=== PATIENT | female | born 1975 | race Caucasian/White ===

== ENCOUNTER 2018-08-13 11:42 | Inpatient (IN) | payer MEDICARE, MEDICAID ==
[2018-08-13 11:42] VITALS: BMI 26.6
[2018-08-13 13:36] LABS: SQUAMOUS EPITHIAL 13 /hpf (0-5); URINE BILIRUBIN NEGATIVE (NEGATIVE); URINE BLOOD 1+ (NEGATIVE); URINE CLARITY Hazy (Clear); URINE COLOR Yellow (YELLOW); URINE GLUCOSE (UA) NORMAL (Normal); URINE LEUKOCYTE ESTERASE TRACE Leu/uL (Negative); URINE PROTEIN NEGATIVE (NEGATIVE); URINE UROBILINOGEN NORMAL mg/dL (0.2-1.0)
[2018-08-13 13:39] LABS: BASO % 0.5 % (0.0-2.0); EOS # 0.1 K/uL (0.0-0.7); EOS % 1.5 % (0.0-4.0); HCG,QUALITATIVE URINE NEGATIVE (NEGATIVE); LYMPH % 36.3 % (20.0-40.0); MEAN CELL VOLUME 85.2 fL (81.0-99.0); MEAN PLATELET VOLUME 7.5 fL (7.2-11.7); MONO # 0.5 K/uL (0.0-0.8); MONO % 5.7 % (0.0-10.0); NEUT # 4.6 K/uL (1.8-7.0); RBC 4.14 Mil/uL (3.80-5.20); RED CELL DISTRIBUTION WIDTH 13.6 % (11.5-14.5); WHITE BLOOD COUNT 8.2 K/uL (4.8-10.8)
[2018-08-13 13:51] LABS: ALB/GLOB RATIO 1.3 (1.0-2.1); ALBUMIN 4.5 g/dL (3.5-5.0); ALT/SGPT 31 U/L (9-52); AST/SGOT 30 U/L (14-36); BLOOD UREA NITROGEN 6 mg/dL (7-17); CALCIUM 9.9 mg/dl (8.6-10.4); GFR NON-AFRICAN AMERICAN > 60
[2018-08-13 14:00] LABS: BARBITURATES, UR NEGATIVE (NEGATIVE); BENZODIAZEPINES, UR NEGATIVE (NEGATIVE); OPIATES, UR NEGATIVE (NEGATIVE); PHENCYCLIDINE, UR NEGATIVE (NEGATIVE)
--- NOTE | 2018-08-13 14:23 | C.PDOC ---
History Of Present Illness 43-year-old female, presents to the emergency department with complaints of SI. Patient denies any drug use. No HI Time Seen by Provider: 08/13/18 12:20 Chief Complaint (Nursing): Psychiatric Evaluation History Per: Patient History/Exam Limitations: no limitations Past Medical History Reviewed: Historical Data, Nursing Documentation, Vital Signs Vital Signs: Last Vital Signs Temp 97.4 F L 08/13/18 14:32 Pulse 68 08/13/18 14:32 Resp 18 08/13/18 14:32 BP 125/86 08/13/18 14:32 Pulse Ox 100 08/13/18 14:32 - Medical History PMH: Anxiety, Asthma, Bipolar Disorder, Depression, Hypercholesterolemia Surgical History: Cholecystectomy - [facility] Procedures INDIVID PSYCHOTHERAP NEC (06/23/13) OTHER GROUP THERAPY (06/23/13) Family History: States: No Known Family Hx - Social History Hx Tobacco Use: No Hx Alcohol Use: Yes Hx Substance Use: No - Immunization History Hx Tetanus Toxoid Vaccination: No Hx Influenza Vaccination: No Hx Pneumococcal Vaccination: No Review Of Systems Constitutional: Negative for: Fever Cardiovascular: Negative for: Chest Pain Respiratory: Negative for: Shortness of Breath Neurological: Negative for: Weakness, Numbness Physical Exam - Physical Exam Appears: Non-toxic, No Acute Distress Skin: Warm, Dry, No Rash Head: Atraumatic, Normacephalic Eye(s): bilateral: Normal Inspection Nose: Normal Oral Mucosa: Moist Lips: Normal Appearing Neck: Normal ROM Cardiovascular: Rhythm Regular, No Murmur Respiratory: Normal Breath Sounds, No Accessory Muscle Use Gastrointestinal/Abdominal: Soft, No Tenderness Back: Normal Inspection Extremity: Normal ROM, No Deformity Neurological/Psych: Oriented x3, Normal Speech ED Course And Treatment - Laboratory Results Result Diagrams: 08/13/18 13:15 08/13/18 13:15 O2 Sat by Pulse Oximetry: 99 Pulse Ox Interpretation: Normal (RA) Medical Decision Making Medical Decision Making: Plan: * Bloodwork * UA * 1:1 observation * Reassess and Disposition Disposition Discussed With : Yoandy Weaver Counseled Patient/Family Regarding: Studies Performed, Diagnosis - Disposition Disposition: HOSPITALIZED Disposition Time: 14:39 Condition: FAIR Forms: [employer] (Polish) - Clinical Impression Clinical Impression: Manic bipolar I disorder - Scribe Statement The provider has reviewed the documentation as recorded by the Scribe (Yunier Nelson) Provider Attestation: All medical record entries made by the Scribe were at my direction and personally dictated by me. I have reviewed the chart and agree that the record accurately reflects my personal performance of the history, physical exam, medical decision making, and the department course for this patient. I have also personally directed, reviewed, and agree with the discharge instructions and disposition.
[2018-08-13 14:40] VITALS: O2SAT 99
--- NOTE | 2018-08-13 16:40 | PCM.BM ---
<Sudheer,Rosie Walker - Last Filed: 08/13/18 16:39> Treatment Plan Problems - Problems identified on initial assessmt depression Date Initiated: 08/13/18 Time Initiated: 16:39 Assessment reference: NA Status: Active Treatment assets and liabiliti Patient Assests: cooperative, educated, insightful, motivated, ADL independent, physically healthy, good support system, negotiates basic needs, cognitively intact Patient Liabilities: financial problems - Milieu Protocol Maintain good personal hygiene: daily Encourage regular showers, daily Remind patient to perform daily oral care, daily Assist patient to perform ADL's Conduct patient checks and document Observation sheet: Q15 minutes Maintain personal safety: every shift Educate patient to report safety concerns to staff, every shift Monitor environment for contraband/sharps Medication safety: Monitor for expected outcome, potential side effects: every shift, Assess barriers to learning: every shift, Assess readiness for medication education: every shift <Florinda Murguia - Last Filed: 08/15/18 11:59> Family Contact Family involvement: Family/SO is involved Family contact: Patient agrees to contact Family contact name: Francesca Rdz-sister Family contacted how many times per week?: 1 - Outside Agency PACT Care involvment: Following patient during stay, Information-sharing Agency contact name: PACT Agency contact number: - Goals for Treatment Patient goals for treatment: "I want to go home." Discharge/Continuing Care - Education Needs Education Needs: Patient Medication, Patient Coping Skills - Discharge Discharge Criteria: Tolerates medication w/o severe side effects, Reduction of target symptoms Discharge to:: Home, With Family - Treatment Team Participation Discussed with Family/SO: No Was Patient/Family/SO present at Treatment Team Meeting: Yes <Yoandy Weaver - Last Filed: 08/20/18 11:36> - Diagnosis (1) Schizoaffective disorder Status: Acute Interventions: 08/20/18 11:36 * Assess/adjust medications daily and /or as needed * See patient on an individual basis 7x/week to assess status of hallucinations * Discuss risks, benefits, side effects and alternatives of medications *
[2018-08-14] MEDS ORDERED: Lithium Carbonate 150 MG CAP PO SCH (10:00)
--- NOTE | 2018-08-14 10:22 | PCM.PSYCH ---
Initial Psychiatric Evaluation - Initial Psychiatric Evaluation Type of Admission: Voluntary Legal Status: Capacity Chief Complaint (in patient's own words): I was feeling depressed and suicidal.' History of Present Illness and Precipitating Events: This is a 43 years old female, , who lives with her , came to the hospital with depressed and irritable mood and suicidal ideation. Patient history of multiple inpatient psychiatric hospitalizations. She was recently discharged from [facility] involuntary unit, last month. Patient is currently seeing a doctor at [facility] and got a shot of Risperdal, almost 3 days ago. Patient appeared very disorganized and internally preoccupied throughout the interview. She appeared to be manic, paranoid, bizarre and delusional. She remained very talkative, loud, aggressive and irritable throughout the interview. She reports of racing thoughts, irritability and agitation. She also reports auditory hallucinations noncommand type. She reports that she is constantly hearing voices that never goes away. She also reports of seeing shadows and demons. She remained disheveled, bizarre and paranoid. She was a poor historian and at times she started yelling and cursing at the staff, saying they're not giving her her medications. PMH: Asthma, DM Current Medications: Active Medications Generic Name Dose Route Start Last Admin Trade Name Freq PRN Reason Stop Dose Admin Hydroxyzine HCl 25 mg 08/13/18 14:25 08/14/18 06:57 Atarax PO 25 mg Q6 PRN Administration Agitation Theresa Carbonate 150 mg 08/14/18 10:00 08/14/18 09:06 Theresa Carbonate 150mg PO 150 mg DAILY ALETA Administration Metformin HCl 850 mg 08/13/18 18:00 08/14/18 09:09 Glucophage PO 850 mg BID ALETA Administration Risperidone 2 mg 08/13/18 18:00 08/14/18 09:06 Risperdal Tab PO 2 mg BID ALETA Administration Rosuvastatin Calcium 10 mg 08/13/18 22:00 08/13/18 21:24 Crestor PO 10 mg HS ALETA Administration Zolpidem Tartrate 5 mg 08/13/18 22:00 08/13/18 21:24 Ambien PO 5 mg HS ALETA Administration Past Psychiatric History - Past Psychiatric History Previous Treatment History: Inpatient Pertinent Medical Hx (Current Medical&Sleep Prob, Allergies): Allergies Allergy/AdvReac Type Severity Reaction Status Date / Time divalproex sodium Allergy Verified 08/13/18 11:49 [From Depakote] haloperidol [From Haldol] Allergy Verified 08/13/18 11:49 Penicillins Allergy Verified 08/13/18 11:49 Atorvastatin [Lipitor] 20 mg PO DAILY 08/13/18 Theresa Carbonate [Theresa Carbonate 150MG] 150 mg PO DAILY 08/13/18 Risperidone [Risperdal] 2 mg PO BID 08/13/18 Zolpidem [Ambien] 5 mg PO QPM 08/13/18 clonazePAM [clonAZEPAM] 0.5 mg PO BID 08/13/18 metFORMIN [glucOPHAGE] 850 mg PO BID 08/13/18 Review of Systems - Review of Systems All systems: reviewed and no additional remarkable complaints except - Psychiatric Psychiatric: Anxiety, Auditory Hallucinations, Irritability, Mood Swings, Suicidal Ideation, Visual Hallucinations Mental Status Examination - Personal Presentation Personal Presentation: Looks stated age - Affect Affect: Broad - Motor Activity Motor Activity: Psychomotor Agitation - Reliability in Providing Information Reliability in Providing Information: Poor, due to alteration in thoughts, Poor , due to altered mood - Speech Speech: Disorganized - Mood Mood: Anxious - Formal Thought Process Formal Thought Process: Hallucinations, Delusions, Paranoia, Loosening of associations, Flight of ideas, Circumstantial - Hallucinations/Delusions Hallucinations: Visual, Auditory Delusions: Persecution - Obsessions/Compulsions Obsessions: No Compulsions: No - Cognitive Functions Orientation: Person, Place, Situation, Time Sensorium: Alert Attention/Concentration: Attentive Abstract Thinking: [place] Estimate of Intelligence: Below average Judgement: Imparied, as evidence by: Poor judgement, Imparied, as evidence by: Lack of insight into illness - Risk Risk: Suicidal, Diminished functioning - Strength & Assets Inventory Strength & Assets Inventory: Family support DSM 5 DX - DSM 5 DSM 5 Diagnosis: Schizoaffective disorder bipolar type - Recommended/Plan of Treatment Treatment Recommendations and Plan of Treatment: Schizoaffective disorder bipolar type DM Asthma CBT Psychoeducation Supportive therapy, individual therapy and group therapy Risperdal 2 mg by mouth twice a day [place] 300 mg by mouth 3 times a day Trazodone 50 mg by mouth daily at bedtime Hydroxyzine 25 mg by mouth every 6 hours when necessary Klonopin 1 mg by mouth twice a day Ativan 1 mg by mouth every 6 hours when necessary Continue metformin Continue asthma inhaler - Smoking Cessation Smoking Cessation Initiated: No
[2018-08-14] MEDS ORDERED: Albuterol HFA 90 mcg/actuation (8 g) INH PRN (15:27)
[2018-08-14] MEDS: Fluticasone-Salmeterol 250-50mcg Diskus INH SCH (20:03)
[2018-08-15] MEDS: Fluticasone-Salmeterol 250-50mcg Diskus INH SCH ×2 (08:02→20:10)
--- NOTE | 2018-08-15 12:55 | PCM.PYCHPN ---
Psychiatric Progress Note - Psychiatric Progress Note Patient seen today, length of contact: 15 min Patient Chief Complaint: I was feeling depressed.' Problems Identified/Issues Discussed: Patient seen and evaluated, chart reviewed and discussed with the nurse. She still reports irritability and agitation. Pt remained disorganized and internally preoccupied. She still appears manic, psychotic, delusional and continued to have racing thoughts and flight of ideas. Patient is compliant with medications and denies any side effects. Symptoms are improving but pt needs more time to stabilize. Support and psychoeducation given. Medication Change: Yes Medical Record Reviewed: Yes Mental Status Examination - Cognitive Function Orientation: Person, Place, Situation, Time Memory: Intact Attention: Poor Concentration: Poor Association: Loose Fund of Knowledge: Poor - Mood Mood: Anxious - Affect Affect: Broad - Speech Speech: Loud - Formal Thought Process Formal Thought Process: Hallucinations, Delusions, Paranoia, Loosening of associations, Flight of ideas, Circumstantial - Suicidal Ideation Suicidal Ideation: No - Homicidal Ideation Homicidal Ideation: No Goal/Treatment Plan - Goal/Treatment Plan Need for Continued Stay: Severe depression anxiety, Severe functional impairment Progress Toward Problem(s) and Goals/Treatment Plan: Schizoaffective disorder bipolar type DM Asthma CBT Psychoeducation Supportive therapy, individual therapy and group therapy Risperdal 2 mg by mouth twice a day [place] 600 mg by mouth 2 times a day Trazodone 50 mg by mouth daily at bedtime Hydroxyzine 25 mg by mouth every 6 hours when necessary Klonopin 1 mg by mouth twice a day Ativan 1 mg by mouth every 6 hours when necessary Continue metformin Continue asthma inhaler
[2018-08-16] MEDS: Fluticasone-Salmeterol 250-50mcg Diskus INH SCH ×2 (07:56→20:30)
[2018-08-17] MEDS ORDERED: Magnesium Hydroxide Susp 30 ml UD PO ONE (01:30)
[2018-08-17] MEDS: Fluticasone-Salmeterol 250-50mcg Diskus INH SCH ×2 (08:04→20:10)
--- NOTE | 2018-08-17 23:33 | PCM.PYCHPN ---
Psychiatric Progress Note - Psychiatric Progress Note Patient seen today, length of contact: 15 min Patient Chief Complaint: "I am ready to leave tomorrow" Problems Identified/Issues Discussed: The pt is seen, chart reviewed, case discussed with staff. The pt is compliant with medications and reports no side-effects. Symptoms are improving but needs much more time to stabilize. Still very sick Support and psychoeducation given. Medication Change: Yes Medical Record Reviewed: Yes Mental Status Examination - Cognitive Function Orientation: Person, Place, Situation, Time Memory: Impaired Attention: Poor Concentration: Poor Association: Loose Fund of Knowledge: Poor - Mood Mood: Anxious - Affect Affect: Constricted - Speech Speech: Loud - Formal Thought Process Formal Thought Process: Hallucinations, Delusions, Paranoia, Loosening of associations, Flight of ideas, Circumstantial - Suicidal Ideation Suicidal Ideation: No - Homicidal Ideation Homicidal Ideation: No Goal/Treatment Plan - Goal/Treatment Plan Need for Continued Stay: Discharge may exacerbated symptoms, Severe functional impairment Progress Toward Problem(s) and Goals/Treatment Plan: Continue medications Support and psychoeducation daily Attend groups and activities daily After care planning by GERA
[2018-08-18] MEDS: Fluticasone-Salmeterol 250-50mcg Diskus INH SCH ×2 (07:36→21:02)
[2018-08-19] MEDS: Fluticasone-Salmeterol 250-50mcg Diskus INH SCH ×2 (08:33→20:42)
--- NOTE | 2018-08-19 12:24 | PCM.PYCHPN ---
Psychiatric Progress Note - Psychiatric Progress Note Patient seen today, length of contact: 16 min Patient Chief Complaint: I was feeling irritable' Problems Identified/Issues Discussed: Patient seen and evaluated, chart reviewed and discussed with the nurse. Per st aff, pt appears little better, however, she remained disorganized and internally preoccupied. She still appears manic, psychotic, delusional and continued to have racing thoughts and flight of ideas. Patient is compliant with medications and denies any side effects. Symptoms are improving but pt needs more time to stabilize. Support and psychoeducation given. Medication Change: Yes Medical Record Reviewed: Yes Mental Status Examination - Cognitive Function Orientation: Person, Place, Situation, Time Memory: Intact Attention: Poor Concentration: Poor Association: Loose Fund of Knowledge: Poor - Mood Mood: Anxious - Affect Affect: Broad - Speech Speech: Loud - Formal Thought Process Formal Thought Process: Hallucinations, Delusions, Paranoia, Loosening of associations, Flight of ideas, Circumstantial - Suicidal Ideation Suicidal Ideation: No - Homicidal Ideation Homicidal Ideation: No Goal/Treatment Plan - Goal/Treatment Plan Need for Continued Stay: Severe depression anxiety, Severe functional impairment Progress Toward Problem(s) and Goals/Treatment Plan: Schizoaffective disorder bipolar type DM Asthma CBT Psychoeducation Supportive therapy, individual therapy and group therapy Risperdal 2 mg by mouth daily Risperdal 4 mg by mouth HS [place] 600 mg by mouth 2 times a day Trazodone 50 mg by mouth daily at bedtime Hydroxyzine 25 mg by mouth every 6 hours when necessary Klonopin 1 mg by mouth TID Ativan 1 mg by mouth every 6 hours when necessary Continue metformin Continue asthma inhaler
--- NOTE | 2018-08-19 12:25 | PCM.PYCHPN ---
Psychiatric Progress Note - Psychiatric Progress Note Patient seen today, length of contact: 16 min Patient Chief Complaint: I was feeling irritable' Problems Identified/Issues Discussed: Patient seen and evaluated, chart reviewed and discussed with the nurse. She reports some improvement in her voices but remained disorganized and internally preoccupied. She still appears manic, psychotic, delusional and continued to have racing thoughts and flight of ideas. Patient is compliant with medications and denies any side effects. Symptoms are improving but pt needs more time to stabilize. Support and psychoeducation given. Medication Change: Yes Medical Record Reviewed: Yes Mental Status Examination - Cognitive Function Orientation: Person, Place, Situation, Time Memory: Intact Attention: Poor Concentration: Poor Association: Loose Fund of Knowledge: Poor - Mood Mood: Anxious - Affect Affect: Broad - Speech Speech: Loud - Formal Thought Process Formal Thought Process: Hallucinations, Delusions, Paranoia, Loosening of associations, Flight of ideas, Circumstantial - Suicidal Ideation Suicidal Ideation: No - Homicidal Ideation Homicidal Ideation: No Goal/Treatment Plan - Goal/Treatment Plan Need for Continued Stay: Severe depression anxiety, Severe functional impairment Progress Toward Problem(s) and Goals/Treatment Plan: Schizoaffective disorder bipolar type DM Asthma CBT Psychoeducation Supportive therapy, individual therapy and group therapy Risperdal 2 mg by mouth daily Risperdal 4 mg by mouth HS [place] 600 mg by mouth 2 times a day Trazodone 50 mg by mouth daily at bedtime Hydroxyzine 25 mg by mouth every 6 hours when necessary Klonopin 1 mg by mouth TID Ativan 1 mg by mouth every 6 hours when necessary Continue metformin Continue asthma inhaler
[2018-08-20] MEDS: Fluticasone-Salmeterol 250-50mcg Diskus INH SCH ×2 (08:56→19:57)
--- NOTE | 2018-08-20 11:35 | PCM.PYCHPN ---
Psychiatric Progress Note - Psychiatric Progress Note Patient seen today, length of contact: 16 min Patient Chief Complaint: I was feeling irritable' Problems Identified/Issues Discussed: Patient seen and evaluated, chart reviewed and discussed with the nurse. She appears more organized and less internally preoccupied than before. However, she still appears hypomanic, psychotic, and delusional . She continued to have racing thoughts and flight of ideas. Patient is compliant with medications and denies any side effects. Symptoms are improving but pt needs more time to stabilize. Support and psychoeducation given. Medication Change: Yes Medical Record Reviewed: Yes Mental Status Examination - Cognitive Function Orientation: Person, Place, Situation, Time Memory: Intact Attention: WNL Concentration: WNL Association: Loose Fund of Knowledge: WNL - Mood Mood: Anxious - Affect Affect: Broad - Speech Speech: Loud - Formal Thought Process Formal Thought Process: Delusions, Loosening of associations - Suicidal Ideation Suicidal Ideation: No - Homicidal Ideation Homicidal Ideation: No Goal/Treatment Plan - Goal/Treatment Plan Need for Continued Stay: Severe depression anxiety, Severe functional impairment Progress Toward Problem(s) and Goals/Treatment Plan: Schizoaffective disorder bipolar type DM Asthma CBT Psychoeducation Supportive therapy, individual therapy and group therapy Risperdal 2 mg by mouth daily Risperdal 4 mg by mouth HS [place] 600 mg by mouth 2 times a day Trazodone 50 mg by mouth daily at bedtime Hydroxyzine 25 mg by mouth every 6 hours when necessary Klonopin 1 mg by mouth TID Ativan 1 mg by mouth every 6 hours when necessary Continue metformin Continue asthma inhaler Invega Sustenna 234 mg I/M
[2018-08-20] MEDS ORDERED: Patient's Own Injectable IM ONE (13:00)
[2018-08-21 06:54] VITALS: RESP 18; TEMP 98.1
[2018-08-21 08:54] VITALS: BP 117/77; PULSE 85
--- NOTE | 2018-08-21 10:02 | PCM.PYCHDC ---
Mental Status Examination - Mental Status Examination Orientation: Person, Place, Situation, Time Memory: Intact Mood: Neutral Affect: Constricted Speech: Soft Attention: WNL Concentration: WNL Association: WNL Fund of Knowledge: WNL Formal Thought Process: No Impairment Description of patient's judgement and insight: good, fair Psychotic Thoughts and Behaviors: denies any AVH Suicidal Ideation: No Current Homicidal Ideation?: No Discharge Summary - Discharge Note Reason for Hospitalization: This is a 43 years old female, , who lives with her , came to the hospital with depressed and irritable mood and suicidal ideation. Patient history of multiple inpatient psychiatric hospitalizations. She was recently discharged from [facility] involuntary unit, last month. Patient is currently seeing a doctor at [facility] and got a shot of Risperdal, almost 3 days ago. Patient appeared very disorganized and internally preoccupied throughout the interview. She appeared to be manic, paranoid, bizarre and delusional. She remained very talkative, loud, aggressive and irritable throughout the interview. She reports of racing thoughts, irritability and agitation. She also reports auditory hallucinations noncommand type. She reports that she is constantly hearing voices that never goes away. She also reports of seeing shadows and demons. She remained disheveled, bizarre and paranoid. She was a poor historian and at times she started yelling and cursing at the staff, saying they're not giving her her medications. Laboratory Data: Abnormal Lab Results 08/21/18 08:00 POC Glucose (mg/dL) 111 H Consultations:: List each consultation separately and include: 1. Reason for request. 2. Findings. 3. Follow-up Summary of Hospital Course include:: 1. Description of specific treatment plan utilized for patients during their course of treatmen. 2. Summarize the time- course for resolution of acute symptoms and/or regressed behaviors. 3. Describe issues identified and worked on during hospitalization. 4. Describe medication utilized. 5. Describe medical problems identified and treated. 6. Reassessment of suicide risk Summary of Hospital Course: This is a 43 years old female, , who lives with her , came to the hospital with depressed and irritable mood and suicidal ideation. Patient history of multiple inpatient psychiatric hospitalizations. She was recently discharged from [facility] involuntary unit, last month. Patient is currently seeing a doctor at [facility] and got a shot of Risperdal, almost 3 days ago. Patient appeared very disorganized and internally preoccupied throughout the interview. She appeared to be manic, paranoid, bizarre and delusional. She remained very talkative, loud, aggressive and irritable throughout the interview. She reports of racing thoughts, irritability and agitation. She also reports auditory hallucinations noncommand type. She reports that she is constantly hearing voices that never goes away. She also reports of seeing shadows and demons. She remained disheveled, bizarre and paranoid. She was a poor historian and at times she started yelling and cursing at the staff, saying they're not giving her her medications. PMH: Asthma, DM - Diagnosis (1) Schizoaffective disorder Current Visit: Yes Status: Acute - Final Diagnosis (DSM 5) Condition upon Discharge: FAIR DSM 5: Schizoaffective disorder bipolar type Disposition: HOME/ ROUTINE Follow-up Treatment Plan: Schizoaffective disorder bipolar type DM Asthma CBT Psychoeducation Supportive therapy, individual therapy and group therapy Risperdal 2 mg by mouth daily Risperdal 4 mg by mouth HS [place] 600 mg by mouth 2 times a day Trazodone 50 mg by mouth daily at bedtime Hydroxyzine 25 mg by mouth every 6 hours when necessary Klonopin 1 mg by mouth TID Ativan 1 mg by mouth every 6 hours when necessary Continue metformin Continue asthma inhaler [place] 234 mg I/M Prescriptions/Medication Reconciliation: Albuterol HFA [Ventolin HFA 90 mcg/actuation (8 g)] 2 puff INH RQ6 PRN #1 inhaler PRN Reason: Shortness Of Breath Atorvastatin [Lipitor] 20 mg PO DAILY #30 tab Benztropine [Cogentin] 1 mg PO BID #60 tab Fluticasone/Salmeterol 250/50 [Advair Diskus 250/50] 1 puff INH RQ12 #1 puff [place] Carbonate [[place] Carbonate 300MG] 300 mg PO BID #120 cap metFORMIN [glucOPHAGE] 850 mg PO BID #60 tab Paliperidone Palmitate [Invega Sustenna] 234 mg IM ONCE #1 syr risperiDONE [RisperDAL Tab] 2 mg PO HS #30 tab risperiDONE [RisperDAL Tab] 2 mg PO DAILY #30 tab traZODone [Desyrel] 100 mg PO HS #30 tab - Smoking Cessation Smoking Cessation Medication prescribed: No - Antipsychotic Medications Pt discharged on 2 or more routine antipsychotic medications: No
[2018-08-21] MEDS: Fluticasone-Salmeterol 250-50mcg Diskus INH SCH (10:04)
== END 2018-08-21 10:45 | disposition home or self-care (01) | DRG 885 ==
LOC: C.ER 11:42 → C.5E 14:39
PROVIDERS: ADMIT Psychiatry & Neurology Psychiatry; ATTEND Psychiatry & Neurology Psychiatry
PROC: GZHZZZZ Group Psychotherapy (ICD-10-PCS; principal; 2018-08-13)
PROC: GZ56ZZZ Individual Psychotherapy, Supportive (ICD-10-PCS; 2018-08-13)
DX: F25.0 Schizoaffective disorder, bipolar type (principal); E11.9 Type 2 diabetes mellitus without complications; E78.00 Pure hypercholesterolemia, unspecified; J45.909 Unspecified asthma, uncomplicated